=== PATIENT | male | born 1980 | race Caucasian/White ===

== ENCOUNTER 2017-03-24 15:28 | Emergency (ER) | payer BC ==
[~2017-03-24] VITALS: Ht 185.4 cm; Wt 89.0 kg
[~2017-03-24 15:28] MED LIST: ASPI81TA28 PO; LSN/10125 PO; MULT-506 PO
[2017-03-24 15:31] VITALS: BP 166/93; PULSE 85; TEMP 36.8; O2SAT 100; Ht 185.4 cm; Wt 89.0 kg
[2017-03-24] MEDS ORDERED: VILA1TAB2 PO (15:37)
--- NOTE | 2017-03-24 15:57 | DIAGNOSTIC IMAGING REPORT ---
RIGHT HAND MIN 3 VIEWS ROUTINE CLINICAL HISTORY: Right third digit injury. COMPARISON: None FINDINGS: Alignment of the right hand is anatomic. No acute fracture is identified. Joint spaces are preserved. Carpal bones appear intact. IMPRESSION: No acute fracture or dislocation of the right hand. Electronically signed by: Zeb Pulido M.D. 03/24/2017 3:56 PM Dictated Date/Time: 03/24/2017 3:55 PM
--- NOTE | 2017-03-24 23:25 | EMERGENCY ROOM VISIT NOTE ---
ED Visit Note First contact with patient: 15:35 Chief Complaint: Right middle finger injury. History of Present Illness: Mr. Palacios is a 36 or old white male who ambulates into the ED complaining of a right middle finger injury. Patient reports proximately 1-2 hours ago he was scratching off a piece of dirt off his car with his middle finger, felt a popping sensation and since that time he is not able to extend middle finger DIP joint. Associated with this he reports there is just an "odd sensation" in the finger along the course of the extensor tendon but denies that it is pain or numbness/tingling. He denies any associated symptoms he has not taken any medications for his symptoms prior to arrival at the hospital. Patient he denies any previous significant injuries or surgeries to the finger. Review of Systems: As noted above in history of present illness. Past Medical History: Possible factor V Leiden deficiency, status post adenoidectomy. Current Medications: Viibryd. Allergies to Medications: Penicillin. Social History: Patient is currently employed; he feels safe in his home environment; he denies tobacco use and admits to alcohol use. Physical Examination: Vital Signs: Date Time Temp Pulse Resp B/P (MAP) Pulse Ox O2 Delivery O2 Flow Rate FiO2 03/24/17 15:31 36.8 85 16 166/93 100 GENERAL: 36-year-old male in no acute distress, nontoxic-appearing, afebrile and hemodynamically stable. NEUROLOGICAL: Awake, alert and oriented to person, place and time. Answering questions appropriately and following commands. SKIN: Warm, dry and pink. No soft tissue eruptions or trauma noted. RIGHT HAND: No gross bony deformity. At rest patient's middle finger DIP joint is limited. He is not able to extend the finger. He does have easy passive extension of the DIP joint. He does have full range of motion and 5/5 muscle strength in the third MCP and PIP joint. Throughout the finger the skin was warm and pink and capillary refill is brisk. He was able to distinguish light sensations through all dermatomes of the finger. ED Course: Patient is assessed as noted above. Patient's medication list was reviewed. Right Hand X-Rays: Were read by myself and the radiologist and shows no acute fractures or dislocations. Patient was placed in a metal finger splint. Patient was educated about today's findings and instructed on his treatment plan ; he verbalizes understanding and agreement with this plan. Clinical Impression: Mallet finger of the right middle finger. Disposition: Patient discharged home in stable condition; prior to departure he was reassessed and subjectively he remained pain and symptom-free and continued to have numbness or tingling. Plan: Cough or measures were discussed with the patient including splint use. Patient was encouraged to follow-up if hand specialist for definitive care and treatment. Patient was encouraged return ED for uncontrolled pain, uncontrolled swelling, finger numbness/tingling.
== END 2017-03-24 16:13 | disposition home or self-care (01) ==
LOC: C.EDB 15:29 → C.EDD 16:13
DX: M20.011 Mallet finger of right finger(s) (principal); X58.XXXA Exposure to other specified factors, initial encounter

== ENCOUNTER → 2017-10-23 | Outpatient (CLI) | payer OTHER ==
[~2017-10-23] MED LIST changes: -ASPI81TA28 PO; -LSN/10125 PO; -MULT-506 PO; +VILA1TAB2 PO
--- NOTE | 2017-10-23 10:08 | DIAGNOSTIC IMAGING REPORT ---
CHEST 2 VIEWS ROUTINE HISTORY: 36 years-old Male [id number] CHEST PAIN acute atypical chest pain COMPARISON: Chest radiograph 12/23/2015, CTA chest 12/23/2015 TECHNIQUE: PA and lateral views of the chest FINDINGS: The cardiomediastinal and hilar silhouettes are within normal limits. There is no pneumothorax, pleural effusion, focal airspace consolidation or overt pulmonary edema. The bones of the chest appear grossly intact. IMPRESSION: No acute process. The above report was generated using voice recognition software. It may contain grammatical, syntax or spelling errors. Electronically signed by: Jamie Lee M.D. 10/23/2017 10:07 AM Dictated Date/Time: 10/23/2017 10:06 AM
== END | disposition home or self-care (01) ==
LOC: C.RAD 09:28
PROVIDERS: ATTEND Family Medicine
DX: R07.9 Chest pain, unspecified (principal)